=== PATIENT | male | born 1930 | race Caucasian/White ===

== ENCOUNTER 2021-05-30 07:39 | Emergency (ER) | payer MEDICARE ==
[2021-05-30] MEDS ORDERED: Pepcid 20 MG VIAL IV ONE ×2 (07:53→08:16)
--- NOTE | 2021-05-30 07:54 | ERPHSYRPT ---
- History of Present Illness Time Seen by Provider: 05/30/21 07:49 Historian: patient, family Exam Limitations: no limitations Physician History: pt has 2 day hx of constipation, LLQ pain and N but no V yet. Abd is tender LLQ without rebound or peritoneal signs. has suprapubic due to bladder retention, no Hx cancer. no fever. Denies trauma. Timing/Duration: yesterday Activities at Onset: none Quality: aching, sharpness Abdominal Pain Onset Location: LLQ Pain Radiation: no radiation Severity of Pain-Max: moderate Severity of Pain-Current: moderate Modifying Factors: Improves With: nothing Associated Symptoms: nausea Previous symptoms: no prior history Allergies/Adverse Reactions: No Known Drug Allergies Allergy (Unverified 05/30/21 07:52) Home Medications: Omeprazole 1 ea DAILY 05/30/21 [History] - Review of Systems Constitutional: No Fever, No Chills Eyes: No Symptoms Ears, Nose, & Throat: No Symptoms Respiratory: No Cough, No Dyspnea Cardiac: No Chest Pain, No Edema, No Syncope Abdominal/Gastrointestinal: Abdominal Pain, Nausea, Constipation, No Vomiting, No Diarrhea Genitourinary Symptoms: No Dysuria Musculoskeletal: No Symptoms, No Back Pain, No Neck Pain Skin: No Symptoms, No Rash Neurological: No Symptoms, No Dizziness, No Focal Weakness, No Sensory Changes Psychological: No Symptoms Endocrine: No Symptoms All Other Systems: Reviewed and Negative - Nursing Vital Signs Nursing Vital Signs: Initial Vital Signs Temperature 97.9 F 05/30/21 07:44 Pulse Rate 92 H 05/30/21 07:44 Respiratory Rate 18 05/30/21 07:44 Blood Pressure 155/78 05/30/21 07:44 O2 Sat by Pulse Oximetry 97 05/30/21 07:44 Pain Scale Pain Intensity 3 - Physical Exam General Appearance: no apparent distress, alert Eye Exam: PERRL/EOMI, eyes nml inspection Ears, Nose, Throat Exam: normal ENT inspection, pharynx normal, moist mucous membranes Neck Exam: normal inspection, non-tender, supple, full range of motion Respiratory Exam: normal breath sounds, lungs clear, No respiratory distress Cardiovascular Exam: regular rate/rhythm, normal heart sounds Gastrointestinal/Abdomen Exam: tenderness (LLQ), guarding, No mass, No pulsatile mass, No rebound Rectal Exam: deferred Back Exam: normal inspection, normal range of motion, No CVA tenderness, No vertebral tenderness Extremity Exam: normal inspection, normal range of motion, pelvis stable Neurologic Exam: alert, oriented x 3, cooperative, normal mood/affect, nml cerebellar function, sensation nml, No motor deficits Skin Exam: normal color, warm, dry - Course Nursing assessment & vital signs reviewed: Yes EKG Interpreted by Me: Sinus Rhythm, NORMAL AXIS, Non-specific ST Changes (inf Q unknown age) - CT Exams Abdomen/Pelvis CT Interpretation: Tele-radiologist Report, Other (bladder stone RIH nonincarc) Ordered Tests: Active Orders 24 hr Category Date Time Status EKG-ER Only STAT Care 05/30/21 07:53 Active Enema STAT Care 05/30/21 11:03 Active IV Insertion STAT Care 05/30/21 07:53 Active NPO (ED) STAT Care 05/30/21 07:53 Active ABDOMEN AND PELVIS W/0 CONTRAS [CT] Stat Exams 05/30/21 07:54 Taken AMYLASE Stat Lab 05/30/21 08:00 Completed CBC W DIFF Stat Lab 05/30/21 08:00 Completed CMP Stat Lab 05/30/21 08:00 Completed CULTURE,URINE Stat Lab 05/30/21 07:54 Ordered LIPASE Stat Lab 05/30/21 08:00 Completed Lactic Acid Stat Lab 05/30/21 07:53 Completed TROPONIN Q3H Lab 05/30/21 08:00 Completed TROPONIN Q3H Lab 05/30/21 11:13 Completed TROPONIN Q3H Lab 05/30/21 14:00 Ordered TROPONIN Q3H Lab 05/30/21 17:00 Ordered TROPONIN Q3H Lab 05/30/21 20:00 Ordered UA W/RFX UR CULTURE Stat Lab 05/30/21 08:29 Completed Medication Summary Generic Name Dose Route Start Last Admin Trade Name Freq PRN Reason Stop Dose Admin Sodium Chloride 1,000 mls @ 100 mls/hr 05/30/21 08:00 05/30/21 08:17 Sodium Chloride 0.9% 1000 Ml IV 06/29/21 07:59 100 mls/hr .Q10H NICOL Administration Discontinued Medications Generic Name Dose Route Start Last Admin Trade Name Freq PRN Reason Stop Dose Admin Famotidine 20 mg 05/30/21 07:53 05/30/21 08:17 Pepcid 20 Mg Vial IV 05/30/21 07:54 20 mg STAT ONE Administration Famotidine Confirm 05/30/21 08:16 Pepcid 20 Mg Vial Administered 05/30/21 08:17 Dose 20 mg IV .STK-MED ONE Ondansetron HCl 4 mg 05/30/21 07:56 05/30/21 08:17 Zofran 4 Mg/2 Ml Vial IV 05/30/21 07:57 4 mg STAT ONE Administration Ondansetron HCl Confirm 05/30/21 08:16 Zofran 4 Mg/2 Ml Vial Administered 05/30/21 08:17 Dose 4 mg .ROUTE .STK-MED ONE Trimethoprim/Sulfamethoxazole 1 tab 05/30/21 11:00 05/30/21 11:29 Bactrim Ds Tablet PO 05/30/21 11:01 1 tab STAT STA Administration Trimethoprim/Sulfamethoxazole Confirm 05/30/21 11:23 Bactrim Ds Tablet Administered 05/30/21 11:24 Dose 1 tab PO .STK-MED ONE Lab/Rad Data: Laboratory Result Diagrams 05/30/21 08:00 05/30/21 08:00 Laboratory Results 05/30/21 05/30/21 05/30/21 Range/Units 11:13 08:29 08:00 WBC (4.0-10.5) K/mm3 RBC (4.1-5.6) M/mm3 Hgb (12.5-18.0) gm/dl Hct (42-50) % MCV (78-100) fl MCH (26-32) pg MCHC (32-36) g/dl RDW (11.5-14.0) % Plt Count (150-450) K/mm3 MPV (7.5-11.0) fl Gran % (36.0-66.0) % Eos # (Auto) (0-0.5) Absolute Lymphs (auto) (1.0-4.6) Absolute Monos (auto) (0.0-1.3) Lymphocytes % (24.0-44.0) % Monocytes % (0.0-12.0) % Eosinophils % (0.00-5.0) % Basophils % (0.0-0.4) % Absolute Granulocytes (1.4-6.9) Basophils # (0-0.4) Sodium (137-145) mmol/L Potassium (3.5-5.1) mmol/L Chloride (98-107) mmol/L Carbon Dioxide (22-30) mmol/L Anion Gap (5-15) MEQ/L BUN (9-20) mg/dL Creatinine (0.66-1.25) mg/dL Estimated GFR ML/MIN Glucose (74-106) mg/dL Lactic Acid (0.4-2.0) Calcium (8.4-10.2) mg/dL Total Bilirubin (0.2-1.3) mg/dL AST (17-59) U/L ALT (0-50) U/L Alkaline Phosphatase (38-126) U/L Troponin I < 0.012 < 0.012 (0.000-0.034) ng/mL Serum Total Protein (6.3-8.2) g/dL Albumin (3.5-5.0) g/dL Amylase (30-110) U/L Lipase (23-300) U/L Urine Color ADAM (YELLOW) Urine Appearance CLOUDY (CLEAR) Urine pH 7.0 (5-6) Ur Specific [place] 1.017 (1.005-1.025) Urine Protein 100 (Negative) Urine Ketones TRACE (NEGATIVE) Urine Blood SMALL (0-5) Venkata/ul Urine Nitrite NEGATIVE (NEGATIVE) Urine Bilirubin NEGATIVE (NEGATIVE) Urine Urobilinogen 4 (0-1) mg/dL Ur Leukocyte Esterase MODERATE (NEGATIVE) Urine WBC (Auto) >100 (0-5) /HPF Urine RBC (Auto) 11-15 (0-2) /HPF U Epithel Cells (Auto) NONE (FEW) /HPF Urine Bacteria (Auto) MANY (NEGATIVE) /HPF Urine Mucus (Auto) SLIGHT (NEGATIVE) /HPF Urine Culture Reflexed ORDERED SEPARATELY (NO) Urine Glucose NEGATIVE (NEGATIVE) mg/dL 05/30/21 05/30/21 05/30/21 Range/Units 08:00 08:00 07:53 WBC 13.6 H (4.0-10.5) K/mm3 RBC 4.52 (4.1-5.6) M/mm3 Hgb 13.0 (12.5-18.0) gm/dl Hct 40.5 L (42-50) % MCV 89.6 (78-100) fl MCH 28.8 (26-32) pg MCHC 32.1 (32-36) g/dl RDW 14.7 H (11.5-14.0) % Plt Count 202 (150-450) K/mm3 MPV 9.9 (7.5-11.0) fl Gran % 86.6 H (36.0-66.0) % Eos # (Auto) 0 (0-0.5) Absolute Lymphs (auto) 0.93 L (1.0-4.6) Absolute Monos (auto) 0.89 (0.0-1.3) Lymphocytes % 6.8 L (24.0-44.0) % Monocytes % 6.5 (0.0-12.0) % Eosinophils % 0.0 (0.00-5.0) % Basophils % 0.1 (0.0-0.4) % Absolute Granulocytes 11.78 H (1.4-6.9) Basophils # 0.02 (0-0.4) Sodium 138 (137-145) mmol/L Potassium 4.3 (3.5-5.1) mmol/L Chloride 106 (98-107) mmol/L Carbon Dioxide 22 (22-30) mmol/L Anion Gap 14.6 (5-15) MEQ/L BUN 14 (9-20) mg/dL Creatinine 0.84 (0.66-1.25) mg/dL Estimated GFR > 60.0 ML/MIN Glucose 122 H (74-106) mg/dL Lactic Acid 1.1 (0.4-2.0) Calcium 9.1 (8.4-10.2) mg/dL Total Bilirubin 1.30 (0.2-1.3) mg/dL AST 501 H (17-59) U/L ALT 271 H (0-50) U/L Alkaline Phosphatase 237 H (38-126) U/L Troponin I (0.000-0.034) ng/mL Serum Total Protein 7.3 (6.3-8.2) g/dL Albumin 4.1 (3.5-5.0) g/dL Amylase 80 (30-110) U/L Lipase 101 (23-300) U/L Urine Color (YELLOW) Urine Appearance (CLEAR) Urine pH (5-6) Ur Specific [place] (1.005-1.025) Urine Protein (Negative) Urine Ketones (NEGATIVE) Urine Blood (0-5) Venkata/ul Urine Nitrite (NEGATIVE) Urine Bilirubin (NEGATIVE) Urine Urobilinogen (0-1) mg/dL Ur Leukocyte Esterase (NEGATIVE) Urine WBC (Auto) (0-5) /HPF Urine RBC (Auto) (0-2) /HPF U Epithel Cells (Auto) (FEW) /HPF Urine Bacteria (Auto) (NEGATIVE) /HPF Urine Mucus (Auto) (NEGATIVE) /HPF Urine Culture Reflexed (NO) Urine Glucose (NEGATIVE) mg/dL - Progress Progress: improved, re-examined Progress Note: 05/30/21 10:54 pt and were advised of results and elevated liver tests requiring workup , and that additional undetected pathology could be evolving with serious c omplications potential including , and after discussion of risks and benefits they prefer DC with outpt f/u and workup ; they understand and have the capacity to make that choice. 05/30/21 10:56 carina PO in ER 05/30/21 10:56 Counseled pt/family regarding: lab results, diagnosis, need for follow-up, rad results - Departure Departure Disposition: Home Clinical Impression: enzymes of unknown etiology, elevated liver enzymes and abd pain, uti/hematouria Condition: Good Critical Care Time: No Referrals: CLAYTON CALLAWAY [Primary Care Provider] - Instructions: Acute Abdomen (Belly Pain), Adult (DC), Blood in the Urine (Hematuria), Adult (DC), Urinary Tract Infection, Adult (DC) Additional Instructions: we have not determined a cause for your abdominal pain or elevated liver tests , and these will require more workup and followup with your Dr. Return meantime if not improving, vomiting, fever, or other concerns as there could be a more serious underlying problem. there is a bladder stone and may be infection so we are treating for this but requires follow-up as well. there is a right hernia and elevated blood pressure to follow with your Dr. Prescriptions: Cephalexin Mh 500 mg [Keflex 500 mg] 500 mg PO TID #30 capsule
[2021-05-30] MEDS ORDERED: Zofran 4 MG/2 ML VIAL IV ONE (07:56)
[2021-05-30] MEDS ORDERED: Sodium Chloride 0.9% 1000 ML 1,000 ML IV SCH (08:00)
[2021-05-30 08:11] LABS: Absolute Neutrophil Ct (ANC) 11.78 (1.4-6.9); BASOPHIL % 0.1 % (0.0-0.4); Basophil (Absolute #) 0.02 (0-0.4); Eosinophil (Absolute #) 0 (0-0.5); Hematocrit 40.5 % (42-50); Lymphocyte (Absolute #) 0.93 (1.0-4.6); Lymphocytes % 6.8 % (24.0-44.0); Mean Cell Volume 89.6 fl (78-100); Mean Corpuscular Hemoglobin 28.8 pg (26-32); Mean Corpuscular Hgb Concent. 32.1 g/dl (32-36); Mean Platelet Volume 9.9 fl (7.5-11.0); Monocyte (Absolute #) 0.89 (0.0-1.3); Monocytes % 6.5 % (0.0-12.0); Neutrophil % 86.6 % (36.0-66.0); Platelet Count 202 K/mm3 (150-450); Red Blood Count 4.52 M/mm3 (4.1-5.6); Red Cell Distribution Width 14.7 % (11.5-14.0); White Blood Count 13.6 K/mm3 (4.0-10.5)
[2021-05-30] MEDS ORDERED: Zofran 4 MG/2 ML VIAL ONE (08:16)
[2021-05-30] MEDS ORDERED: Sodium Chloride 0.9% 1000 ML 1,000 ML ONE (08:16)
[2021-05-30 08:22] LABS: ALBUMIN 4.1 g/dL (3.5-5.0); ALKALINE PHOSPHATASE 237 U/L (38-126); AMYLASE 80 U/L (30-110); ANION GAP 14.6 MEQ/L (5-15); BLOOD UREA NITROGEN 14 mg/dL (9-20); CHLORIDE 106 mmol/L (98-107); Calcium 9.1 mg/dL (8.4-10.2); Carbon Dioxide 22 mmol/L (22-30); Creatinine 1 0.84 mg/dL (0.66-1.25); EST GLOMERULAR FILTRATION RATE > 60.0 ML/MIN; Glucose 122 mg/dL (74-106); LIPASE 101 U/L (23-300); Potassium 4.3 mmol/L (3.5-5.1); SGOT/AST 501 U/L (17-59); SGPT/ALT 271 U/L (0-50); SODIUM 138 mmol/L (137-145); Total Protein 7.3 g/dL (6.3-8.2)
[2021-05-30 08:50] LABS: Appearance CLOUDY (CLEAR); Bacteria MANY /HPF (NEGATIVE); Bilirubin NEGATIVE (NEGATIVE); Blood SMALL Ery/ul (0-5); Glucose NEGATIVE (NEGATIVE); Ketones TRACE (NEGATIVE); Leukocyte Esterase MODERATE (NEGATIVE); Mucus SLIGHT /HPF (NEGATIVE); Nitrite NEGATIVE (NEGATIVE); Protein,Urine Dip 100 (Negative); Specific Gravity 1.017 (1.005-1.025); Urobilinogen 4 mg/dL (0-1); WBC >100 /HPF (0-5)
[2021-05-30] MEDS ORDERED: BACTRIM DS TABLET PO STA (11:00)
[2021-05-30] MEDS ORDERED: BACTRIM DS TABLET PO ONE (11:23)
[2021-05-30 13:21] VITALS: BP 135/71
[2021-05-30] MEDS ORDERED: KEFLEX 500 MG PO ONE (13:23)
[2021-05-30] MEDS ORDERED: KEFLEX 500 MG ONE (13:34)
[2021-05-30 13:48] VITALS: PULSE 70; O2SAT 98
--- NOTE | 2021-05-30 18:53 | XRAY ---
Indication: Abdomen pain, nausea, and constipation. Multiple contiguous axial images obtained through the abdomen and pelvis without contrast. Comparison: None Lung bases demonstrates minimal bibasilar subsegmental atelectasis/scarring. No infiltrate or effusion. Heart not enlarged. Small hiatal hernia. Noncontrasted stomach and bowel loops appear nonobstructed. There is mild diffuse scattered colonic fecal debris throughout and scattered descending/sigmoid diverticulosis. Appendectomy reported. No free fluid/air. Urinary bladder is near empty with a suprapubic balloon catheter in situ and a 1.7 cm calculus near the base of the bladder. Remaining liver, gallbladder, pancreas, spleen, adrenal glands, kidneys, ureters, and bladder are unremarkable for noncontrast exam. Mild scattered aortoiliac calcifications without AAA. Osseous structures intact with mild osteopenia, mild/moderate multilevel thoracolumbar degenerative spondylosis, and mild bilateral hip degenerative arthropathy. Small right inguinal hernia with knuckle of bowel loop herniating. No obstruction/incarceration. Impression: 1. Diffuse fecal stasis, colonic diverticulosis, right inguinal hernia without complications, and small hiatal hernia. 2. 1.7 cm urinary bladder calculus and suprapubic catheter in situ. Negative for obstructive uropathy. 3. Chronic bony findings. Comment: Preliminary interpretation was made by [facility]. No critical discrepancy.
== END 2021-05-30 13:48 | disposition home or self-care (01) ==
LOC: ED 07:39
DX: R10.32 Left lower quadrant pain (principal); K59.00 Constipation, unspecified; R94.5 Abnormal results of liver function studies; R11.0 Nausea; R74.8 Abnormal levels of other serum enzymes; N39.0 Urinary tract infection, site not specified; R31.9 Hematuria, unspecified; Z79.899 Other long term (current) drug therapy
CPT/HCPCS: 36000; 36415; 74176; 80053; 81001; 82150; 83605; 83690; 84484; 85025; 87077; 87086; 87186; 93005; 96374; 96375; 99284; J2405; A9270-GY